=== PATIENT | female | born 1975 | race Caucasian/White ===

== ENCOUNTER 2017-08-27 03:57 | Inpatient (IN) | payer BC ==
[~2017-08-27] VITALS: Ht 165.1 cm; Wt 76.0 kg
[2017-08-27 04:54] LABS: CALCIUM 8.5 mg/dL (8.5-10.1); CHLORIDE SERUM 106 mmol/L (98-107); CREATININE SERUM 0.8 mg/dL (0.6-1.0); GFR1 > 60 mL/min; GLUCOSE SERUM 74 mg/dL (74-106); POTASSIUM SERUM 3.6 mmol/L (3.5-5.1); SODIUM SERUM 141 mmol/L (136-145)
[2017-08-27 05:11] LABS: AMPHETAMINE QUAL UR POSITIVE (NEG <=1000)
[2017-08-27 05:42] LABS: microscopic required? NO
[2017-08-27 05:55] LABS: BASOPHIL % 0.3 % (0-2); PLATELET COUNT 290 x10^3mcL (130-400)
[2017-08-27 06:01] LABS: UA SPECIFIC GRAVITY >=1.030 (1.005-1.035); urine erythrocyte NEGATIVE (NEGATIVE)
[2017-08-27 06:04] LABS: RED CELL DISTRIBUTION WIDTH 21.7 % (11.5-14.5)
[2017-08-27 06:07] LABS: MAGNESIUM 2.1 mg/dL (1.8-2.4); PHOSPHOROUS 4.9 mg/dL (2.5-4.9)
[2017-08-27 06:08] LABS: CHOLESTEROL/HDL RATIO 1.9
[2017-08-27 06:11] LABS: T3 TOTAL 1.03 ng/mL
[2017-08-27 06:19] LABS: FREE T4 1.2 ng/dL (0.76-1.46); FREE THYROXINE INDEX 3.3 ug/dL (1.4-4.5); T4(THYROXINE) 9.1 ug/dL (4.7-13.3)
[2017-08-27 06:34] VITALS: BP 101/63
[2017-08-27] MEDS ORDERED: FUROSEMIDE20 MG PO (08:37)
[2017-08-27] MEDS ORDERED: PHENTERMINE H37.5 M3 (08:38)
[2017-08-27] MEDS ORDERED: POTASSIUM CHLO20 ME1 (08:41)
[2017-08-27] MEDS ORDERED: EPZICOM1 TAB (08:41)
[2017-08-27 09:55] VITALS: BP 104/64
[2017-08-27 12:42] VITALS: BP 100/60
[2017-08-27 16:59] VITALS: BP 95/60
[2017-08-27 21:15] VITALS: BP 108/64
[2017-08-28 05:36] VITALS: BP 100/63
[2017-08-28 06:24] LABS: CALCIUM 7.8 mg/dL (8.5-10.1); CARBON DIOXIDE 25.9 mmol/L (21-32); CHLORIDE SERUM 110 mmol/L (98-107); CREATININE SERUM 0.7 mg/dL (0.6-1.0); GFR1 > 60 mL/min; GLUCOSE SERUM 83 mg/dL (74-106); POTASSIUM SERUM 3.7 mmol/L (3.5-5.1); SODIUM SERUM 142 mmol/L (136-145)
[2017-08-28 06:45] LABS: BASOPHIL % 0.6 % (0-2); PLATELET COUNT 201 x10^3mcL (130-400)
[2017-08-28 07:05] LABS: RED CELL DISTRIBUTION WIDTH 21.5 % (11.5-14.5); rbc morphology (normal/abnorm) ABNORMAL (NORMAL)
[2017-08-28 08:48] VITALS: BP 101/34
[2017-08-28 13:42] VITALS: BP 104/76
[2017-08-28] MEDS ORDERED: NATURAL IRON65 MG PO (15:48)
[2017-08-28] MEDS ORDERED: ATIVAN1 MG PO (15:49)
== END 2017-08-28 17:47 | disposition home or self-care (01) | DRG 557 ==
LOC: ED 03:57 → DU 05:29
PROVIDERS: Emergency Medicine; ADMIT Family Medicine
DX: M62.82 Rhabdomyolysis (principal); N17.0 Acute kidney failure with tubular necrosis; D64.9 Anemia, unspecified; F41.9 Anxiety disorder, unspecified; Z98.84 Bariatric surgery status; F17.210 Nicotine dependence, cigarettes, uncomplicated; Z91.013 Allergy to seafood; Z90.49 Acquired absence of other specified parts of digestive tract
CPT/HCPCS: 83880; 84439; J1885; J7030; Q0092